=== PATIENT | male | born 1950 | race Two or more races ===

== ENCOUNTER 2023-07-07 16:28 | Emergency (ER) | payer OTHER ==
[~2023-07-07] VITALS: Ht 170.2 cm; Wt 66.7 kg
[2023-07-07] MEDS ORDERED: SINGULAIR4 M1 PO (16:40)
[2023-07-07] MEDS ORDERED: PROTONIX40 MG PO (16:41)
[2023-07-07] MEDS ORDERED: SYNTHROID100 MCG PO (16:41)
[2023-07-07] MEDS ORDERED: GLIMEPIRIDE2 M1 PO (16:41)
[2023-07-07] MEDS ORDERED: ISOSORBIDE MONO60 MG (16:42)
[2023-07-07] MEDS ORDERED: COMPAZINE25 MG PO ×2 (16:42→16:44)
[2023-07-07] MEDS ORDERED: ZOFRAN8 MG (16:42)
[2023-07-07] MEDS ORDERED: PLAVIX75 MG (16:42)
[2023-07-07] MEDS ORDERED: ALTACE5 MG (16:43)
[2023-07-07] MEDS ORDERED: XELODA500 MG PO (16:43)
[2023-07-07] MEDS ORDERED: CREON DR 36,001 EACH PO ×2 (16:43→16:44)
[2023-07-07] MEDS ORDERED: XELODA150 MG PO (16:43)
[2023-07-07] MEDS ORDERED: WIXELA 250-501 EACH IH (16:44)
[2023-07-07] MEDS ORDERED: ZOCOR20 MG PO (16:45)
[2023-07-07 17:54] LABS: HEMATOCRIT 28.5 % (39.0-48.0); HEMOGLOBIN 9.2 g/dL (13-16.00); MEAN CELL VOLUME 88.2 fL (80.0-100.00); MEAN CORPUSCULAR HEMOGLOBIN 28.6 pg (27.00-32.0); MEAN CORPUSCULAR HGB CONC 32.4 g/dl (32.0-36.0); PLATELET COUNT 185 K/uL (150-450); RED BLOOD COUNT 3.23 M/uL (4.00-6.00); RED CELL DISTRIBUTION WIDTH 17.2 % (11.5-14.5)
[2023-07-07 17:55] LABS: PH,URINE 7.5 (5.0-8.0); URINE APPEARANCE Clear; URINE BILIRRUBIN Moderate (NEGATIVE); URINE BLOOD Negative; URINE COLOR Dark Yellow; URINE GLUCOSE Negative (NEGATIVE); URINE LEUKOCYTE Trace; URINE NITRATE Negative; URINE PROTEIN Trace (NEGATIVE); URINE UROBILINOGEN 0.2 E.U./dl
[2023-07-07 17:56] LABS: URINE RBC 21.4 uL (0.0-20.8)
[2023-07-07 18:02] LABS: URINE BACTERIA 2.5 uL (0.0-1933); URINE WBC 0.9 uL (0.0-23.2)
[2023-07-07 18:21] LABS: INR 1.07; PARTIAL THROMBOPLASTIN TIME 30.2 SECONDS (22.0-34.0); PROTHROMBIN TIME 11.2 SECONDS (9.0-11.5)
[2023-07-07 18:27] LABS: ALBUMIN 2.4 gm/dL (3.4-5.0); BILIRUBIN TOTAL 5.19 mg/dL (0.3-1.2); CREATININE SERUM 0.75 mg/dL (0.70-1.30); GFR 101.8; GLOBULINA 4.1 G/DL (2.4-3.5); TOTAL PROTEIN 6.5 gm/dL (6.4-8.2)
[2023-07-07 18:39] LABS: POTASSIUM 2.87 mEq/L (3.5-5.1)
== END 2023-07-08 02:58 | disposition home or self-care (01) ==
LOC: ER 16:28
PROVIDERS: General Practice
DX: C25.9 Malignant neoplasm of pancreas, unspecified (principal); N39.9 Disorder of urinary system, unspecified; E11.9 Type 2 diabetes mellitus without complications; I10 Essential (primary) hypertension
CPT/HCPCS: 36415; 74177; 99284; Q9965